=== PATIENT | male | born 1990 | race African-American/Black ===

== ENCOUNTER 2017-08-27 18:47 | Emergency (ER) | payer BC, OTHER ==
[2017-08-27] MEDS ORDERED: Ketorolac 30 MG/ML SDV IVPUSH ONE (19:15)
[2017-08-27] MEDS ORDERED: Sodium Chloride 0.9% 10 ML Syringe FLUSH PRN (19:15)
--- NOTE | 2017-08-27 19:26 | EDM.PDOC ---
ED HPI GENERAL MEDICAL PROBLEM - General Chief Complaint: Abdominal Pain Stated Complaint: ABDOMINAL PAIN Time Seen by Provider: 08/27/17 19:00 Source of Information: Reports: Patient History Limitations: Reports: No Limitations - History of Present Illness INITIAL COMMENTS - FREE TEXT/NARRATIVE: 27-year-old male presents for evaluation and treatment of abdominal pain. Patient reports he's been experiencing abdominal pain since yesterday. States it came on gradually. Describes the pain currently is a constant dull ache reports it is located on the left side of his abdomen. Rates the pain at a 6 out of 10. He has also had pain in between his shoulder blades. He reports his associated symptoms of chills. Denies any fevers, nausea, vomiting, diarrhea, constipation, melena, hematochezia, dysuria or hematuria. Patient reports she took an [place] this morning which seemed to dull the pain. Reports en route to the ER the bumps narrowed actually seemed to improve the pain. Reports he currently feels hungry. Last intake was around 1300. No previous surgeries to his abdomen. Patient does not have a primary care provider. Duration: Day(s): (2) Left Lower Abdominal Pain Score (Numeric/FACES): 6 - Related Data Allergies Allergy/AdvReac Type Severity Reaction Status Date / Time No Known Allergies Allergy Verified 08/27/17 18:54 Home Meds: Home Meds Multivitamin [Daily Patrizia] 1 each PO DAILY 08/27/17 [History] Past Medical History - Past Health History Medical/Surgical History: Denies Medical/Surgical History Social & Family History - Tobacco Use Smoking Status *Q: Never Smoker - Recreational Drug Use Recreational Drug Use: No ED ROS GENERAL - Review of Systems Review Of Systems: See Below Constitutional: Reports: Chills. Denies: Fever, Decreased Appetite GI/Abdominal: Reports: Abdominal Pain (left lower quadrant). Denies: Constipation, Diarrhea, Hematochezia, Melena, Nausea, Vomiting : Reports: No Symptoms. Denies: Dysuria, Hematuria ED EXAM, GI/ABD - Physical Exam Exam: See Below Exam Limited By: No Limitations General Appearance: Alert, WD/WN, No Apparent Distress, Thin Ears: Normal External Exam Nose: Normal Inspection Throat/Mouth: Normal Inspection, Normal Voice, No Airway Compromise Neck: Normal Inspection Respiratory/Chest: No Respiratory Distress, Lungs Clear, Normal Breath Sounds Cardiovascular: Normal Peripheral Pulses, Regular Rate, Rhythm, No Murmur GI/Abdominal Exam: Normal Bowel Sounds, Soft, Tender (mild to the LLQ). No: Distended, Rigid Back Exam: Normal Inspection Neurological: Alert, Oriented, Normal Cognition Psychiatric: Normal Affect, Normal Mood Skin Exam: Warm, Dry, Normal Color Course - Vital Signs Last Recorded V/S: Last Vital Signs Temp 36.3 C 08/27/17 18:54 Pulse 69 08/27/17 18:54 Resp 15 08/27/17 18:54 BP 136/103 H 08/27/17 18:54 Pulse Ox 100 08/27/17 18:54 - Orders/Labs/Meds Orders: Active Orders 24 hr Category Date Time Status Peripheral IV Care [RC] . DIRECTED Care 08/27/17 19:15 Active Abdomen 2V AP Flat Upright [CR] Stat Exams 08/27/17 19:15 Taken Peripheral IV Insertion Adult [OM.PC] Routine Oth 08/27/17 19:15 Ordered Labs: Laboratory Tests 08/27/17 08/27/17 08/27/17 Range/Units 19:20 19:20 19:20 WBC 7.77 (4.23-9.07) K/mm3 RBC 5.30 (4.63-6.08) M/mm3 Hgb 14.7 (13.7-17.5) gm/L Hct 43.0 (40.1-51.0) % MCV 81.1 (79.0-92.2) fl MCH 27.7 (25.7-32.2) pg MCHC 34.2 (32.2-35.5) g/dl RDW Std Deviation 35.4 (35.1-43.9) fL Plt Count 281 (163-337) K/mm3 MPV 10.3 (9.4-12.3) fl Neutrophils % (Manual) 61 H (40-60) % Band Neutrophils % 0 (0-10) % Lymphocytes % (Manual) 32 (20-40) % Atypical Lymphs % 0 % Monocytes % (Manual) 6 (2-10) % Eosinophils % (Manual) 1 (0.8-7.0) % Basophils % (Manual) 0 L (0.2-1.2) Platelet Estimate Adequate Plt Morphology Comment Normal RBC Morph Comment Normal Sodium 139 (136-145) mEq/L Potassium 3.4 L (3.5-5.1) mEq/L Chloride 103 (98-107) mEq/L Carbon Dioxide 27 (21-32) mEq/L Anion Gap 12.4 (5-15) BUN 8 (7-18) mg/dL Creatinine 1.1 (0.7-1.3) mg/dL Est Cr Clr Drug Dosing 106.80 mL/min Estimated GFR (MDRD) > 60 (>60) mL/min BUN/Creatinine Ratio 7.3 L (14-18) Glucose 103 (74-106) mg/dL Calcium 9.5 (8.5-10.1) mg/dL Total Bilirubin 2.2 H (0.2-1.0) mg/dL Direct Bilirubin 0.30 H (0.0-0.2) mg/dl GGT 54 (15-85) U/L AST 25 (15-37) U/L ALT 46 (16-63) U/L Alkaline Phosphatase 89 (46-116) U/L C-Reactive Protein < 0.2 (<1.0) mg/dL Total Protein 8.1 (6.4-8.2) g/dl Albumin 3.9 (3.4-5.0) g/dl Globulin 4.2 gm/dL Albumin/Globulin Ratio 0.9 L (1-2) Lipase 97 (73-393) U/L Urine Color (Yellow) Urine Appearance (Clear) Urine pH (5.0-8.0) Ur Specific [place] (1.005-1.030) Urine Protein (Negative) Urine Glucose (UA) (Negative) Urine Ketones (Negative) Urine Occult Blood (Negative) Urine Nitrite (Negative) Urine Bilirubin (Negative) Urine Urobilinogen (0.2-1.0) Ur Leukocyte Esterase (Negative) Urine RBC (0-5) /hpf Urine WBC (0-5) /hpf Ur Epithelial Cells (0-5) /hpf Urine Bacteria (FEW) /hpf Urine Mucus (FEW) /hpf 08/27/17 Range/Units 19:25 WBC (4.23-9.07) K/mm3 RBC (4.63-6.08) M/mm3 Hgb (13.7-17.5) gm/L Hct (40.1-51.0) % MCV (79.0-92.2) fl MCH (25.7-32.2) pg MCHC (32.2-35.5) g/dl RDW Std Deviation (35.1-43.9) fL Plt Count (163-337) K/mm3 MPV (9.4-12.3) fl Neutrophils % (Manual) (40-60) % Band Neutrophils % (0-10) % Lymphocytes % (Manual) (20-40) % Atypical Lymphs % % Monocytes % (Manual) (2-10) % Eosinophils % (Manual) (0.8-7.0) % Basophils % (Manual) (0.2-1.2) Platelet Estimate Plt Morphology Comment RBC Morph Comment Sodium (136-145) mEq/L Potassium (3.5-5.1) mEq/L Chloride (98-107) mEq/L Carbon Dioxide (21-32) mEq/L Anion Gap (5-15) BUN (7-18) mg/dL Creatinine (0.7-1.3) mg/dL Est Cr Clr Drug Dosing mL/min Estimated GFR (MDRD) (>60) mL/min BUN/Creatinine Ratio (14-18) Glucose (74-106) mg/dL Calcium (8.5-10.1) mg/dL Total Bilirubin (0.2-1.0) mg/dL Direct Bilirubin (0.0-0.2) mg/dl GGT (15-85) U/L AST (15-37) U/L ALT (16-63) U/L Alkaline Phosphatase (46-116) U/L C-Reactive Protein (<1.0) mg/dL Total Protein (6.4-8.2) g/dl Albumin (3.4-5.0) g/dl Globulin gm/dL Albumin/Globulin Ratio (1-2) Lipase (73-393) U/L Urine Color Yellow (Yellow) Urine Appearance Clear (Clear) Urine pH 7.0 (5.0-8.0) Ur Specific [place] 1.020 (1.005-1.030) Urine Protein 1+ H (Negative) Urine Glucose (UA) Negative (Negative) Urine Ketones Negative (Negative) Urine Occult Blood Trace-lysed H (Negative) Urine Nitrite Negative (Negative) Urine Bilirubin Negative (Negative) Urine Urobilinogen 0.2 (0.2-1.0) Ur Leukocyte Esterase Negative (Negative) Urine RBC 0-5 (0-5) /hpf Urine WBC 0-5 (0-5) /hpf Ur Epithelial Cells Not seen (0-5) /hpf Urine Bacteria Rare (FEW) /hpf Urine Mucus Not seen (FEW) /hpf Meds: Medications Discontinued Medications Generic Name Dose Route Start Last Admin Trade Name Freq PRN Reason Stop Dose Admin Ketorolac Tromethamine 30 mg 08/27/17 19:15 08/27/17 19:29 Toradol IVPUSH 08/27/17 19:16 30 mg ONETIME ONE Administration Sodium Chloride 10 ml 08/27/17 19:15 08/27/17 19:30 Saline Flush FLUSH 10 ml ASDIRECTED PRN Administration Keep Vein Open - Radiology Interpretation Free Text/Narrative:: flat and upright shows no air fluid lines. increased stool to the right hemicolon. - Re-Assessments/Exams Free Text/Narrative Re-Assessment/Exam: 08/27/17 20:54 I reviewed the labs and imaging with the patient. I feel his abdominal pain is likely from constipation. 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 However, the remainder of his labs normal and his vital signs normal acute cholecystitis is unlikely. I will have him follow-up with family medicine for further workup. Recommend treatment for constipation in the meantime. Discharge instructions as documented. Departure - Departure Time of Disposition: 21:04 Disposition: Home, Self-Care 01 Condition: Fair Clinical Impression: Constipation - Discharge Information Instructions: Constipation, Adult Referrals: PCP,None [Primary Care Provider] - Lelo Mark PA-C [Physician [employer] And Conservation Worker] - Forms: ED Department Discharge Additional Instructions: Recommend purchasing a bottle of magnesium citrate. This is available over-the- counter. Drink about half the bottle over 1 hour. If you do not have a large bowel movement from half the bottle, drink the second half about 8 hours later. make sure your are drinking plenty of fluids. May take [id number] MiraLAX as needed for normal bowel maintenance. Follow-up with family medicine for your elevated bilirubin.. Recommend Erin Ngo or Sancho Mills at the [facility]. Call [phone] to schedule with either of these providers. Please return to the ER if your symptoms change or worsen. - My Orders Last 24 Hours: My Active Orders 08/27/17 19:15 Peripheral IV Care [RC] . DIRECTED Abdomen 2V AP Flat Upright [CR] Stat Peripheral IV Insertion Adult [OM.PC] Routine - Assessment/Plan Last 24 Hours: My Active Orders 08/27/17 19:15 Peripheral IV Care [RC] . DIRECTED Abdomen 2V AP Flat Upright [CR] Stat Peripheral IV Insertion Adult [OM.PC] Routine
--- NOTE | 2017-08-28 07:26 | CR ---
Abdomen: Supine and upright views of the abdomen were obtained. Comparison: No prior study. Scattered gas and stool noted within the colon which is unremarkable. Several loops of slightly prominent small bowel gas are noted. Bowel gas pattern is otherwise unremarkable. No free air is seen. Bony structures are unremarkable. No abnormal calcifications are seen. Impression: 1. Several slightly prominent loops of small bowel gas which most likely are within normal limits and less likely due to slight ileus. 2. Two-view abdominal study is otherwise unremarkable. Diagnostic code #2
== END 2017-08-27 20:24 | disposition home or self-care (01) ==
LOC: JD.ED 18:47
DX: K59.00 Constipation, unspecified (principal)
CPT/HCPCS: 36415; 74019; 80053; 81001; 82248; 82977; 83690; 85025; 86140; 96374; 99284; J1885; J7050